=== PATIENT | female | born 2000 | race Caucasian/White ===

== ENCOUNTER 2021-05-04 19:35 | Emergency (ER) | payer SELFPAY ==
[~2021-05-04] VITALS: Ht 177.8 cm; Wt 136.1 kg
[2021-05-05 01:05] VITALS: BP 111/81
[2021-05-05] MEDS ORDERED: ACETAMINOPHEN 500 MG TAB PO ONE (01:15)
[2021-05-05] MEDS ORDERED: IBUPROFEN 800 MG TAB PO ONE (01:15)
== END 2021-05-05 03:15 | disposition home or self-care (01) ==
LOC: ER 19:37
DX: S93.401A Sprain of unspecified ligament of right ankle, initial encounter (principal); E66.9 Obesity, unspecified; Z68.41 Body mass index [BMI] 40.0-44.9, adult; X50.0XXA Overexertion from strenuous movement or load, initial encounter; Y93.89 Activity, other specified; Y92.513 Shop (commercial) as the place of occurrence of the external cause; Y99.0 Civilian activity done for income or pay
CPT/HCPCS: 73610